=== PATIENT | female | born 1940 | race Caucasian/White ===

== ENCOUNTER 2021-07-18 01:58 | Inpatient (IN) | payer MEDICARE, OTHER ==
[~2021-07-18] VITALS: Ht 147.3 cm; Wt 50.5 kg
[~2021-07-18 01:58] MED LIST: ATOR10TA70 PO
[2021-07-18] MEDS ORDERED: PRED20TA PO (02:20)
[2021-07-18] MEDS ORDERED: famotidine 20mg tablet PO ONE (02:20)
[2021-07-18] MEDS ORDERED: dexamethasone 4mg tablet PO ONE (02:20)
[2021-07-18] MEDS ORDERED: CefTRIAXone 2gm/D5W 50ml BAG 50 ML IV ONE (02:30)
[2021-07-18] MEDS ORDERED: TETanus/Pertussis (Acell)/Diphther VAC/PF (Tdap-Adult) 0.5ml syringe IMVAC ONE (02:30)
[2021-07-18] MEDS ORDERED: vancomycin/NS 1 GM ADD-VANTAGE 250 ML IV ONE (02:30)
[2021-07-18] MEDS ORDERED: dexamethasone sod phosphate 10mg/ml inj IV STA (02:30)
[2021-07-18] MEDS ORDERED: famotidine/PF 10 mg/ml inj IV ONE (02:30)
[2021-07-18] MEDS ORDERED: LOSA25TA96 PO (02:49)
[2021-07-18] MEDS ORDERED: LEVO25TA2 PO (02:49)
[2021-07-18 03:12] LABS: BASOPHILS # (AUTO) 0.1 X10'3 (0-0.2); BASOPHILS % (AUTO) 0.9 % (0-1); EOSINOPHILS # (AUTO) 0.2 X10'3 (0-0.9); EOSINOPHILS % (AUTO) 2.4 % (0-6); HEMOGLOBIN 14.4 g/dl (12.0-16.0); LYMPHOCYTES # (AUTO) 2.4 X10'3 (1.1-4.8); LYMPHOCYTES % (AUTO) 27.6 % (21-51); MEAN CORPUSCULAR HEMOGLOBIN 32.8 PG (27.0-31.0); MEAN CORPUSCULAR VOLUME 93.6 FL (78-98); MEAN PLATELET VOLUME 8.7 FL (7.4-10.4); MONOCYTES # (AUTO) 0.5 X10'3 (0-0.9); MONOCYTES % (AUTO) 6.2 % (2-12); NEUTROPHILS # (AUTO) 5.4 X10'3 (1.8-7.7); NEUTROPHILS % (AUTO) 62.9 % (42-75); PLATELET COUNT 181 X10'3 (140-440); RED BLOOD COUNT 4.38 X10'6 (4.20-5.60); RED CELL DISTRIBUTION WIDTH 12.7 % (11.5-14.5); WHITE BLOOD COUNT 8.6 X10'3 (4.5-11.0)
[2021-07-18] MEDS ORDERED: ondansetron/PF 4mg/2ml inj IV PRN (03:25)
[2021-07-18] MEDS ORDERED: acetaminophen 325mg tablet PO PRN ×2 (03:25)
[2021-07-18] MEDS ORDERED: HYDROcodone/acetaminophen 10/325mg tab PO PRN (03:25)
[2021-07-18] MEDS ORDERED: HYDROcodone/acetaminophen 5mg/325mg tablet PO PRN (03:25)
[2021-07-18] MEDS ORDERED: potassium Cl 20 mEq SR tablet PO PRN (03:25)
[2021-07-18] MEDS ORDERED: magnesium 2GM in 50ml NS 50 ML IV PRN (03:25)
[2021-07-18] MEDS ORDERED: bisacodyl 10mg suppository rectal RC PRN (03:25)
[2021-07-18] MEDS ORDERED: magnesium 4gm in 100ml NS 100 ML IV PRN (03:25)
[2021-07-18] MEDS ORDERED: potassium Cl 40MEQ/1/2NS 520ml 520 ML IV PRN ×2 (03:25)
[2021-07-18 03:34] LABS: ALANINE AMINOTRANSFERASE 22 U/L (12-78); ALBUMIN 3.4 G/DL (3.4-5.0); ALKALINE PHOSPHATASE 87 IU/L (46-116); ANION GAP 12 (8-16); ASPARTATE AMINO TRANSFERASE 13 U/L (10-37); BILIRUBIN,TOTAL 0.4 MG/DL (0.1-1.0); BLOOD UREA NITROGEN 11 MG/DL (7-18); BUN/CREATININE RATIO 14.3 (6.6-38.0); CALCIUM 8.3 MG/DL (8.5-10.1); CHLORIDE 109 MMOL/L (99-107); CREATININE 0.77 MG/DL (0.40-0.90); GLUCOSE 97 MG/DL (70-104); POTASSIUM 3.4 MMOL/L (3.5-5.1); SODIUM 144 MMOL/L (135-145); TOTAL CARBON DIOXIDE 23.2 MMOL/L (24-32); TOTAL PROTEIN 6.9 G/DL (6.4-8.2); eGFR 72 ML/MIN
[2021-07-18] MEDS ORDERED: hydrALAZINE 20mg/ml inj. IV PRN (03:40)
[2021-07-18] MEDS: potassium Cl 20 mEq SR tablet PO PRN ×2 (04:35→08:14)
--- NOTE | 2021-07-18 04:44 | NUR ---
mri screening form completed
[2021-07-18] MEDS ORDERED: losartan 25mg tablet PO SCH (08:00)
[2021-07-18] MEDS ORDERED: K and/or MAG REPLACEMENT MC SCH (08:00)
[2021-07-18] MEDS ORDERED: docusate sod 100mg capsule PO SCH (08:00)
[2021-07-18] MEDS ORDERED: levoTHYROXINE 25mcg tablet PO SCH (08:00)
[2021-07-18] MEDS ORDERED: atorvastatin 10mg tablet PO SCH (08:00)
[2021-07-18] MEDS ORDERED: GADOTERATE MEGLUMINE 7.5 MMOL/15 ML VIAL IV ONE ×2 (13:58)
[2021-07-18 18:27] VITALS: BP 144/61
[2021-07-18] MEDS ORDERED: CefTRIAXone/D5W-Rocephin 1gm 50 ML IV SCH (20:00)
[2021-07-18] MEDS ORDERED: lactobacillus rhamnosus 10,000 MMU CELLS/CAPSULE PO SCH (20:00)
[2021-07-18] MEDS ORDERED: enoxaparin 40mg/0.4ml syringe SQ SCH (20:00)
[2021-07-19] MEDS ORDERED: vancomycin/NS 1 GM ADD-VANTAGE 250 ML X 1 DOSE IV SCH (03:30)
[2021-07-21] MEDS ORDERED: VANCOMYCIN LEVEL IV ONE (03:00)
== END 2021-07-18 18:30 | disposition home or self-care (01) | DRG 918 ==
LOC: ER 02:00 → UNDOADMIN 03:27 → SUR 3N 03:27 → ED HOLD 03:27
PROVIDERS: ADMIT Family Medicine; ATTEND Family Medicine
PROC: 3E0234Z Introduction of Serum, Toxoid and Vaccine into Muscle, Percutaneous Approach (ICD-10-PCS; principal; 2021-07-18)
DX: T63.441A Toxic effect of venom of bees, accidental (unintentional), initial encounter (principal); L03.114 Cellulitis of left upper limb; F17.210 Nicotine dependence, cigarettes, uncomplicated; E78.5 Hyperlipidemia, unspecified; I10 Essential (primary) hypertension; E87.6 Hypokalemia; J44.9 Chronic obstructive pulmonary disease, unspecified; Z23 Encounter for immunization; Y92.89 Other specified places as the place of occurrence of the external cause; Z79.899 Other long term (current) drug therapy; Z71.6 Tobacco abuse counseling
CPT/HCPCS: 36415; 73140; 73220; 80053; 83605; 84145; 85025; 87040; 90471; 90715; 96365; 96375; 99285; A9575; G0378; J0696; J1100; J3370; J3490